=== PATIENT | female | born 1960 | race Caucasian/White ===

== ENCOUNTER 2024-02-29 12:48 | Inpatient (IN) | payer SELFPAY ==
[2024-02-29] VITALS (13 sets, daily range): BP systolic 115–155; BP diastolic 65–94; PULSE 77–110; RESP 15–18; TEMP 36.6–36.8; O2SAT 3–100; BMI 23.4; BMI 22.4
--- NOTE | 2024-02-29 12:58 | XR_ITS ---
FINAL REPORT CLINICAL HISTORY: fall FINDINGS: Two views demonstrate a mildly displaced intertrochanteric fracture of the proximal femur. There are arthroplasty changes of the knee. The hardware is intact. IMPRESSION: Fracture as above. Reviewed, Interpreted and Dictated by Lolita Jama MD Transcribed by Magaly Friend Authenticated and . [facility]
--- NOTE | 2024-02-29 12:58 | CT_ITS ---
FINAL REPORT TECHNIQUE: Thin section axial CT with sagittal reconstruction without contrast. This study was performed with techniques to keep radiation doses as low as reasonably achievable (ALARA). Individualized dose reduction techniques using automated exposure control or adjustment of mA and/or kV according to the patient's size were employed. CLINICAL HISTORY: fall FINDINGS: No fracture is seen. Alignment is normal. There is mild diffuse degenerative disc change. No obvious canal stenosis identified. IMPRESSION: No fracture or malalignment Reviewed, Interpreted and Dictated by Lolita Jama MD Transcribed by Magaly Friend Authenticated and [facility]
--- NOTE | 2024-02-29 12:58 | CT_ITS ---
FINAL REPORT TECHNIQUE: Axial images were performed through the brain. This study was performed with techniques to keep radiation doses as low as reasonably achievable, (ALARA). Individualized dose reduction techniques using automated exposure control or adjustment of mA and/or kV according to the patient's size were employed. CLINICAL HISTORY: fall on asa FINDINGS: No abnormal density is seen. Ventricles are normal. There is no hemorrhage. No mass effect is seen. Bone windows show no evidence of fracture. IMPRESSION: No acute findings Reviewed, Interpreted and Dictated by Lolita Jama MD Transcribed by Magaly Friend Authenticated and . [facility]
--- NOTE | 2024-02-29 12:58 | XR_ITS ---
FINAL REPORT CLINICAL HISTORY: fall, pain FINDINGS: Three views the left hip demonstrate a mildly displaced intertrochanteric fracture of the proximal femur. No soft tissue abnormality is identified. IMPRESSION: Fracture as above. Reviewed, Interpreted and Dictated by Lolita Jama MD Transcribed by Magaly Friend Authenticated and [facility]
--- NOTE | 2024-02-29 12:59 | HMH.EDGENADL ---
Discharge Plan Disposition Patient Disposition: Admitted Condition: Good Clinical Impressions Clinical Impression: Closed fracture of left hip, Fall Discharge ED Provider: Evelyn Mills General Adult HPI <Yadira España MD - Last Filed: 02/29/24 15:15> General Chief complaint: Fall Stated complaint: Fall Time Seen by Provider: 02/29/24 12:48 History of Present Illness HPI narrative: 63-year-old female presents to the ER for concerns of fall. She states she uses a walker to get around but her left leg sometimes gives out. She states she fell once earlier today, did not strike her head or lose consciousness. She states she was able to get up from that fall, but shortly thereafter fell again. She is not sure that she struck her head, does not believe she lost consciousness, she landed on the left hip and is complaining of left hip pain. She states she has chronic pain elsewhere but does not have any new pain other than the left hip. Patient states she is concerned she broke it. She was unable to get herself up after the second fall and EMS had to be called. Patient takes daily aspirin, no other blood thinners. Related Data Allergies Allergy/AdvReac Type Severity Reaction Status Date / Time celecoxib [From Celebrex] Allergy Unknown Verified 02/29/24 13:01 allergy reaction ibuprofen Allergy Unknown Verified 02/29/24 13:01 allergy reaction PFSH <Yadira España MD - Last Filed: 02/29/24 15:15> [facility] Disclaimer: The information contained in this section may have been updated after the patient was seen, as this information can be updated by other users. Social History (Updated 02/29/24 @ 15:15 by Yadira España MD) Smoking Status: Current every day smoker alcohol intake: never current occupational status: other Travel in the last 8 weeks: None <Yadira España MD - Last Filed: 02/29/24 15:15> ROS Obtained: Yes All systems reviewed & no additional complaints except as documented Constitutional Constitutional: Denies chills, Denies fever(s), Denies headache(s) and Denies weakness Eyes Eyes: Denies change in vision ENT Ears, Nose, Mouth, and Throat: Denies dizziness, Denies headache(s), Denies nasal congestion and Denies sore throat Cardiovascular Cardiovascular: Denies chest pain, Denies dyspnea and Denies leg edema Respiratory Respiratory: Denies cough and Denies dyspnea Gastrointestinal Gastrointestingal: Denies constipation, diarrhea, nausea or vomiting Genitourinary Female Genitourinary: Denies dysuria Musculoskeletal Musculoskeletal: Reports arthralgias (Left hip pain), Denies myalgias, Denies numbness and Denies tingling Integumentary/Breasts Skin/Breast: Denies change in pigmentation Neurologic Neurologic: Denies dizziness, Denies headache(s), Denies numbness, Denies tingling and Denies weakness Physical Exam <Yadira España MD - Last Filed: 02/29/24 15:15> General General appearance: alert and in no apparent distress Head Head exam: atraumatic, normocephalic and other (No acute findings of trauma on the head) Eye Eye exam: Present PERRL and EOMI ENT ENT exam: Present mucous membranes moist Neck Neck exam: Present normal inspection and other (No tenderness, c-collar present) Chest Chest inspection: Present symmetric chest wall rise; Absent tenderness Respiratory Respiratory exam: Absent respiratory distress or stridor Cardiovascular Cardiovascular exam: Present regular rate and normal rhythm Abdominal Exam Abdominal exam: Present soft; Absent distention, tenderness, guarding or rebound Extremities Exam Extremities exam: Present tenderness (Tenderness to palpation over the left hip, external rotation of the left leg is present, no shortening) and other (Neurovascularly intact distally); Absent full ROM (Unable to range the left hip) Back Exam Back exam: Absent tenderness (No focal tenderness) Neurological Exam Neurological exam: Present alert and oriented X3; Absent motor sensory deficit Psychiatric Psychiatric exam: Present normal affect and normal mood Skin Skin exam: Present warm and dry Medical Decision Making <Yadira España MD - Last Filed: 02/29/24 15:15> James Inquiry Pt receiving controlled substance: No Vital Signs: 02/29/24 12:48 02/29/24 13:00 02/29/24 13:30 Temperature 98.2 F Temperature Source Oral Pulse Rate 110 H 90 Pulse Rate [Left Radial] 105 H Respiratory Rate 15 Blood Pressure 115/93 H 137/68 Blood Pressure [Right Arm] 132/94 H Blood Pressure Mean 100 96 Blood Pressure Mean [Right Arm] 106 Blood Pressure Source Blood Pressure Source [Right Arm] Automatic Cuff Blood Pressure Position Blood Pressure Position [Right Arm] Sitting 02 Sat by Pulse Oximetry 94 L 93 L 88 L Oxygen Delivery Method Room Air Oxygen Flow Rate (LPM) 02/29/24 14:00 02/29/24 15:01 02/29/24 15:11 Temperature Temperature Source Pulse Rate 84 88 89 Pulse Rate [Left Radial] Respiratory Rate Blood Pressure 134/88 155/72 H 153/71 H Blood Pressure [Right Arm] Blood Pressure Mean 105 113 113 Blood Pressure Mean [Right Arm] Blood Pressure Source Blood Pressure Source [Right Arm] Blood Pressure Position Blood Pressure Position [Right Arm] 02 Sat by Pulse Oximetry 93 L 94 L 90 L Oxygen Delivery Method Oxygen Flow Rate (LPM) 02/29/24 15:30 02/29/24 16:00 02/29/24 16:30 Temperature Temperature Source Pulse Rate 85 78 77 Pulse Rate [Left Radial] Respiratory Rate Blood Pressure 140/65 145/79 H 151/78 H Blood Pressure [Right Arm] Blood Pressure Mean 90 97 Blood Pressure Mean [Right Arm] Blood Pressure Source Blood Pressure Source [Right Arm] Blood Pressure Position Blood Pressure Position [Right Arm] 02 Sat by Pulse Oximetry 100 100 99 Oxygen Delivery Method Nasal Cannula Oxygen Flow Rate (LPM) 3 02/29/24 16:49 Temperature 98.0 F Temperature Source Oral Pulse Rate 77 Pulse Rate [Left Radial] Respiratory Rate 18 Blood Pressure 151/78 H Blood Pressure [Right Arm] Blood Pressure Mean Blood Pressure Mean [Right Arm] Blood Pressure Source Automatic Cuff Blood Pressure Source [Right Arm] Blood Pressure Position Supine Blood Pressure Position [Right Arm] 02 Sat by Pulse Oximetry Oxygen Delivery Method Nasal Cannula Oxygen Flow Rate (LPM) 3 Lab Data Lab Results 02/29/24 15:04: WBC 12.9 H, RBC 5.28, Hgb 14.8, Hct 45.6, MCV 86.3, MCH 28.0, MCHC 32.4, RDW 16.1, Plt Count 286, MPV 7.5, Neut % (Auto) 85.8 H, Lymph % (Auto) 7.3 L, Irion % (Auto) 6.2, Eos % (Auto) 0.4, Baso % (Auto) 0.2, Neut # (Auto) 11.0 H, Lymph # (Auto) 0.9, Irion # (Auto) 0.8, Eos # (Auto) 0.1, Baso # (Auto) 0.0, Total Counted 100, Neutrophils % (Manual) 85 H, Lymphocytes % (Manual) 10, Monocytes % (Manual) 5, Platelet Estimate Normal, RBC Morphology Normal, PT 10.9, INR 1.01, Sodium 140, Potassium 3.3 L, Chloride 105, Carbon Dioxide 22, Anion Gap 16.3 H, BUN 12, Creatinine 1.00, Estimated Creat Clear 48, Estimated GFR 56 L, Est GFR ( Amer) 67, Glucose 95, Calcium 8.8, Total Bilirubin 0.5, AST 48 H, ALT 37, Alkaline Phosphatase 127 H, Total Protein 7.2, Albumin 4.4, Globulin 2.8, Albumin/Globulin Ratio 1.6 02/29/24 15:04 02/29/24 15:04 Orders (Tests/Meds): ED MEDICATIONS Generic Name Dose Route Start Last Admin Trade Name Freq PRN Reason Stop Dose Admin Hydrocodone Bitart/Acetaminophen 1 tab 02/29/24 16:58 Hydrocodone/Apap 5/325 Mg Tablet PO 03/30/24 16:57 Q4HP PRN Mild to Moderate Pain (1-6) Heparin Sodium (Porcine) 5,000 unit 02/29/24 17:00 Heparin Sodium 5,000 Unit/Ml Vial SQ 03/30/24 16:59 Q8H SELMA Morphine Sulfate 4 mg 02/29/24 16:39 02/29/24 16:43 Morphine 4mg/Ml Syringe IV 02/29/24 16:40 4 mg ONCE ONE Administration Morphine Sulfate 2 mg 02/29/24 16:58 Morphine 2mg/Ml Syringe IV 03/30/24 16:57 Q4H PRN Severe Pain (7-10) Ondansetron HCl 4 mg 02/29/24 16:58 Ondansetron 4mg/2ml Vial IV 03/30/24 16:57 Q8HP PRN Nausea Discontinued Medications Generic Name Dose Route Start Last Admin Trade Name Freq PRN Reason Stop Dose Admin Lactated Ringer's 1,000 mls @ 999 mls/hr 02/29/24 15:12 02/29/24 15:37 Lactated Ringer's 1000 Ml Bag IV 02/29/24 16:12 999 mls/hr .Q1H1M ONE Administration Morphine Sulfate 4 mg 02/29/24 12:59 02/29/24 13:18 Morphine 4mg/Ml Syringe IV 02/29/24 13:00 4 mg ONCE ONE Administration Morphine Sulfate 4 mg 02/29/24 15:06 02/29/24 15:13 Morphine 4mg/Ml Syringe IV 02/29/24 15:07 4 mg ONCE ONE Administration Ondansetron HCl 4 mg 02/29/24 12:59 02/29/24 13:18 Ondansetron 4mg/2ml Vial IV 02/29/24 13:00 4 mg ONCE ONE Administration ORDERS Category Date Time Status CT cervical spine wo con Stat Cat Scan 02/29/24 12:[address] head/brain wo con Stat Cat Scan 02/29/24 12:58 Taken Ortho Consult (on-call) [Consult to On-Call Orthopedic Cons 02/29/24 16:04 Ordered Surgeon] [CONS] Routine Femur XR left 2 views [XR femur LT 2V] Stat Exams 02/29/24 12:58 Taken Hip XR left minimum 2 views [XR hip LT 2-3V w/pelvis] Exams 02/29/24 12:58 Taken Stat Knee XR left 3 views [XR knee LT 3V] Stat Exams 02/29/24 16:08 Taken CBC w/Auto Diff [Complete Blood Count Auto Diff] Stat Lab 02/29/24 15:04 Completed CMP [Comprehensive Metabolic Panel] Stat Lab 02/29/24 15:04 Completed PT INR [Prothrombin Time INR] Stat Lab 02/29/24 15:04 Completed Blood Culture Stat Micro 02/29/24 16:21 Ordered Medical Decision Narrative: In summary, this 63-year-old female presents to the emergency department today with concerns of possible injury after fall, on aspirin, complaints of left hip pain. On initial evaluation patient is hemodynamically stable, afebrile, GCS 15, neurovascularly intact throughout, patient has tenderness of the left hip with external rotation of the left leg, no shortening, she has palpable DP and PT in the left leg as well as full strength with dorsiflexion plantarflexion of the foot and sensation intact. Differential diagnosis includes but is not limited to intracranial bleed, skull fracture, cervical spine injury, unable to rule these out by any clinical calculators due to patient's age, also considered possibility of fracture, dislocation, exam does not indicate findings of other traumatic injury. Based on these concerns, I ordered basic serum labs, CT imaging, x-rays. Patient received IV morphine, Zofran, IV fluids for treatment. X-rays personally interpreted do not demonstrate obvious hip fracture. There is a questionable abnormality of the left femoral neck, however I believe this is due to rotation of the patient and the image. Radiology read pending. CT head personally interpreted does not demonstrate obvious acute intracranial abnormality. Radiology reads pending. On reassessment patient continued to have pain. She received additional IV morphine. Patient handed off to Dr. Mills at physician shift change pending lab results and radiology reads for imaging. <Evelyn Mills, DO - Last Filed: 02/29/24 17:06> Vital Signs: 02/29/24 12:48 02/29/24 13:00 02/29/24 13:30 Temperature 98.2 F Temperature Source Oral Pulse Rate 110 H 90 Pulse Rate [Left Radial] 105 H Respiratory Rate 15 Blood Pressure 115/93 H 137/68 Blood Pressure [Right Arm] 132/94 H Blood Pressure Mean 100 96 Blood Pressure Mean [Right Arm] 106 Blood Pressure Source Blood Pressure Source [Right Arm] Automatic Cuff Blood Pressure Position Blood Pressure Position [Right Arm] Sitting 02 Sat by Pulse Oximetry 94 L 93 L 88 L Oxygen Delivery Method Room Air Oxygen Flow Rate (LPM) 02/29/24 14:00 02/29/24 15:01 02/29/24 15:11 Temperature Temperature Source Pulse Rate 84 88 89 Pulse Rate [Left Radial] Respiratory Rate Blood Pressure 134/88 155/72 H 153/71 H Blood Pressure [Right Arm] Blood Pressure Mean 105 113 113 Blood Pressure Mean [Right Arm] Blood Pressure Source Blood Pressure Source [Right Arm] Blood Pressure Position Blood Pressure Position [Right Arm] 02 Sat by Pulse Oximetry 93 L 94 L 90 L Oxygen Delivery Method Oxygen Flow Rate (LPM) 02/29/24 15:30 02/29/24 16:00 02/29/24 16:30 Temperature Temperature Source Pulse Rate 85 78 77 Pulse Rate [Left Radial] Respiratory Rate Blood Pressure 140/65 145/79 H 151/78 H Blood Pressure [Right Arm] Blood Pressure Mean 90 97 Blood Pressure Mean [Right Arm] Blood Pressure Source Blood Pressure Source [Right Arm] Blood Pressure Position Blood Pressure Position [Right Arm] 02 Sat by Pulse Oximetry 100 100 99 Oxygen Delivery Method Nasal Cannula Oxygen Flow Rate (LPM) 3 06/25/24 16:49 Temperature 98.0 F Temperature Source Oral Pulse Rate 77 Pulse Rate [Left Radial] Respiratory Rate 18 Blood Pressure 151/78 H Blood Pressure [Right Arm] Blood Pressure Mean Blood Pressure Mean [Right Arm] Blood Pressure Source Automatic Cuff Blood Pressure Source [Right Arm] Blood Pressure Position Supine Blood Pressure Position [Right Arm] 02 Sat by Pulse Oximetry Oxygen Delivery Method Nasal Cannula Oxygen Flow Rate (LPM) 3 Lab Data Lab Results 02/29/24 15:04: WBC 12.9 H, RBC 5.28, Hgb 14.8, Hct 45.6, MCV 86.3, MCH 28.0, MCHC 32.4, RDW 16.1, Plt Count 286, MPV 7.5, Neut % (Auto) 85.8 H, Lymph % (Auto) 7.3 L, Irion % (Auto) 6.2, Eos % (Auto) 0.4, Baso % (Auto) 0.2, Neut # (Auto) 11.0 H, Lymph # (Auto) 0.9, Irion # (Auto) 0.8, Eos # (Auto) 0.1, Baso # (Auto) 0.0, Total Counted 100, Neutrophils % (Manual) 85 H, Lymphocytes % (Manual) 10, Monocytes % (Manual) 5, Platelet Estimate Normal, RBC Morphology Normal, PT 10.9, INR 1.01, Sodium 140, Potassium 3.3 L, Chloride 105, Carbon Dioxide 22, Anion Gap 16.3 H, BUN 12, Creatinine 1.00, Estimated Creat Clear 48, Estimated GFR 56 L, Est GFR ( Amer) 67, Glucose 95, Calcium 8.8, Total Bilirubin 0.5, AST 48 H, ALT 37, Alkaline Phosphatase 127 H, Total Protein 7.2, Albumin 4.4, Globulin 2.8, Albumin/Globulin Ratio 1.6 Orders (Tests/Meds): ED MEDICATIONS Generic Name Dose Route Start Last Admin Trade Name Freq PRN Reason Stop Dose Admin Hydrocodone Bitart/Acetaminophen 1 tab 02/29/24 16:58 Hydrocodone/Apap 5/325 Mg Tablet PO 03/30/24 16:57 Q4HP PRN Mild to Moderate Pain (1-6) Heparin Sodium (Porcine) 5,000 unit 02/29/24 17:00 Heparin Sodium 5,000 Unit/Ml Vial SQ 07/25/24 16:59 Q8H SELMA Morphine Sulfate 4 mg 02/29/24 16:39 02/29/24 16:43 Morphine 4mg/Ml Syringe IV 02/29/24 16:40 4 mg ONCE ONE Administration Morphine Sulfate 2 mg 02/29/24 16:58 Morphine 2mg/Ml Syringe IV 03/30/24 16:57 Q4H PRN Severe Pain (7-10) Ondansetron HCl 4 mg 02/29/24 16:58 Ondansetron 4mg/2ml Vial IV 03/30/24 16:57 Q8HP PRN Nausea Discontinued Medications Generic Name Dose Route Start Last Admin Trade Name Freq PRN Reason Stop Dose Admin Lactated Ringer's 1,000 mls @ 999 mls/hr 02/29/24 15:12 02/29/24 15:37 Lactated Ringer's 1000 Ml Bag IV 02/29/24 16:12 999 mls/hr .Q1H1M ONE Administration Morphine Sulfate 4 mg 02/29/24 12:59 02/29/24 13:18 Morphine 4mg/Ml Syringe IV 02/29/24 13:00 4 mg ONCE ONE Administration Morphine Sulfate 4 mg 02/29/24 15:06 02/29/24 15:13 Morphine 4mg/Ml Syringe IV 02/29/24 15:07 4 mg ONCE ONE Administration Ondansetron HCl 4 mg 02/29/24 12:59 02/29/24 13:18 Ondansetron 4mg/2ml Vial IV 02/29/24 13:00 4 mg ONCE ONE Administration ORDERS Category Date Time Status CT cervical spine wo con Stat Cat Scan 02/29/24 12:[address] head/brain wo con Stat Cat Scan 02/29/24 12:58 Taken Ortho Consult (on-call) [Consult to On-Call Orthopedic Cons 02/29/24 16:04 Ordered Surgeon] [CONS] Routine Femur XR left 2 views [XR femur LT 2V] Stat Exams 02/29/24 12:58 Taken Hip XR left minimum 2 views [XR hip LT 2-3V w/pelvis] Exams 02/29/24 12:58 Taken Stat Knee XR left 3 views [XR knee LT 3V] Stat Exams 02/29/24 16:08 Taken CBC w/Auto Diff [Complete Blood Count Auto Diff] Stat Lab 02/29/24 15:04 Completed CMP [Comprehensive Metabolic Panel] Stat Lab 02/29/24 15:04 Completed PT INR [Prothrombin Time INR] Stat Lab 02/29/24 15:04 Completed Blood Culture Stat Micro 02/29/24 16:21 Ordered Medical Decision Narrative: In summary, this 63-year-old female presents to the emergency department today with concerns of possible injury after fall, on aspirin, complaints of left hip pain. On initial evaluation patient is hemodynamically stable, afebrile, GCS 15, neurovascularly intact throughout, patient has tenderness of the left hip with external rotation of the left leg, no shortening, she has palpable DP and PT in the left leg as well as full strength with dorsiflexion plantarflexion of the foot and sensation intact. Differential diagnosis includes but is not limited to intracranial bleed, skull fracture, cervical spine injury, unable to rule these out by any clinical calculators due to patient's age, also considered possibility of fracture, dislocation, exam does not indicate findings of other traumatic injury. Based on these concerns, I ordered basic serum labs, CT imaging, x-rays. Patient received IV morphine, Zofran, IV fluids for treatment. X-rays personally interpreted do not demonstrate obvious hip fracture. There is a questionable abnormality of the left femoral neck, however I believe this is due to rotation of the patient and the image. Radiology read pending. CT head personally interpreted does not demonstrate obvious acute intracranial abnormality. Radiology reads pending. On reassessment patient continued to have pain. She received additional IV morphine. Patient handed off to Dr. Mills at physician shift change pending lab results and radiology reads for imaging. Gene, DO: On my assessment of the patient, she complains of continued left hip pain for which she was given a dose of IV morphine. She is neurovascularly intact. X-ray significant for left intertrochanteric femur fracture. CT scans do not demonstrate any C-spine fracture or intracranial hemorrhage. No other injuries noted, so C-spine was cleared and c-collar was removed. I had an indirect discussion with Dr. Mann with orthopedics who advised that he could see the patient in consultation of the hospitalist feels comfortable admitting the patient. I had an interactive discussion with Dr. Cooper, the hospitalist who admitted the patient for further evaluation and management. She was admitted in stable condition. Critical Care <Yadira España MD - Last Filed: 02/29/24 15:15> Critical Care Time Critical Care Time: No
[2024-02-29] MEDS: MORPHINE 4MG/ML SYRINGE 4 MG IV ×3 (13:18→16:43)
[2024-02-29] MEDS: ONDANSETRON 4MG/2ML VIAL 4 MG IV (13:18)
--- NOTE | 2024-02-29 13:44 | PC.NURSE ---
Pt gone to RAD via stretcher
--- NOTE | 2024-02-29 14:00 | PC.NURSE ---
Pt back from RAD after CT
[2024-02-29 15:17] LABS: Basophils % 0.2 % (0.1-2.0); Eosinophils # 0.1 K/mm3 (0.0-0.4); Eosinophils % 0.4 % (0.1-12.0); Hematocrit 45.6 % (37.0-47.0); Hemoglobin 14.8 g/dL (12.2-16.2); Lymphocytes # 0.9 K/mm3 (0.7-4.5); Lymphocytes % 7.3 % (10-50); Mean Corpuscular HGB Conc 32.4 g/dL (31.8-35.4); Mean Corpuscular Volume 86.3 fl (81-99); Mean Platelet Volume 7.5 fl (7.4-10.4); Monocytes # 0.8 K/mm3 (0.1-1.0); Monocytes % 6.2 % (1.7-9.3); Neutrophils % 85.8 % (37.0-80.0); Platelet Count 286 K/mm3 (142-424); Red Blood Count 5.28 M/mm3 (4.20-5.40); Red Cell Distribution Width 16.1 % (11.5-17.5); White Blood Count 12.9 K/mm3 (4.8-10.8)
[2024-02-29 15:19] LABS: MANUAL DIFFERENTIAL MANUAL DIFFERENTIAL (MANUAL DIFF)
[2024-02-29 15:24] LABS: INR 1.01 (0.9-1.1); Prothrombin Time 10.9 seconds (10.1-12.5)
[2024-02-29 15:35] LABS: Chloride 105 mmol/L (98-107); Sodium 140 mmol/L (136-145)
[2024-02-29 15:36] LABS: Lymphocytes % 10 % (10-50); Monocytes % 5 % (2-9); Neutrophils % 85 % (42-76); Platelet Estimate Normal; Potassium 3.3 mmoL/L (3.5-5.1); RBC Morphology Normal; Total Cells Counted 100
[2024-02-29] MEDS: LACTATED RINGERS 1000ML 1,000 ML 999 ML IV (15:37)
[2024-02-29 15:38] LABS: Alanine Aminotransferase 37 U/L (12-78); Alkaline Phosphatase 127 U/L (38-126); Anion Gap 16.3 mEq/L (5-15); Aspartate Amino Transferase 48 U/L (14-36); Bilirubin,Total 0.5 mg/dl (0.2-1.3); Blood Urea Nitrogen 12 mg/dl (7-17); Calcium 8.8 mg/dl (8.4-10.2); Carbon Dioxide 22 mmol/L (22.0-30.0); Creatinine Clearance Estimated 48 mL/min (50-200); Estimated Glomerular Filt Rate 56 ml/min (>60); GFR (African American) 67 ML/MIN (>60); Glucose 95 mg/dl (74-100)
[2024-02-29 15:39] LABS: Albumin Level 4.4 g/dl (3.5-5.0); Albumin/Globulin Ratio 1.6 (1.1-1.8); Globulin 2.8 g/dL (1.3-3.2); Total Protein,Serum 7.2 g/dl (6.3-8.2)
--- NOTE | 2024-02-29 16:08 | XR_ITS ---
FINAL REPORT CLINICAL HISTORY: fall, hip fx FINDINGS: There is no acute fracture or dislocation. Patient is status post knee arthroplasty. The hardware is intact. IMPRESSION: No acute fracture. Reviewed, Interpreted and Dictated by Lolita Jama MD Transcribed by Magaly Friend Authenticated and [facility]
--- NOTE | 2024-02-29 16:17 | PC.NURSE ---
rad in room for knee x-ray
--- NOTE | 2024-02-29 16:37 | PC.NURSE ---
rounded on pt, pt requesting water and info on consult. aware
--- NOTE | 2024-02-29 16:49 | PC.NURSE ---
Report given to Julia on Med Surg.
[2024-02-29] MEDS: HEPARIN SODIUM 5,000 UNIT/ML VIAL 5000 UNIT SQ (17:46)
[2024-02-29] MEDS: MORPHINE 2MG/ML SYRINGE 2 MG IV ×2 (17:50→21:30)
--- NOTE | 2024-02-29 18:13 | EXP.ORTH.CON ---
History of Present Illness *Admission Date: 02/29/24 *Reason for visit:: Left hip fracture *History of present illness: 63-year-old female who lives in [facility] she was here visiting with her to take care of her 's dad. Her knee gave out to get tangled up in her purse [place] left hip. She called 911 came to the emergency room found to have left hip fracture. She was admitted to the hospitalist team Ortho consulted regarding treatment options for the left hip fracture. [facility] Disclaimer: The information contained in this section may have been updated after the patient was seen, as this information can be updated by other users. Medical History History of gastrectomy Sinus abscess Hypokalemia Neuropathy Gastroparesis Erythrocytosis Hiatal hernia Hepatitis B Slipped intervertebral disc Emphysema of lung COPD (chronic obstructive pulmonary disease) Diabetes mellitus Restless leg syndrome Acid reflux Esophageal spasm Fibromyalgia Osteoporosis Rheumatoid aortitis Hyperlipidemia Surgical History History of left knee replacement H/O bilateral breast reduction surgery Hx of cholecystectomy History of hysterectomy History of lumpectomy of left breast Social History Smoking Status: Current every day smoker alcohol intake: never current occupational status: other Travel in the last 8 weeks: None Review of Systems Constitutional Constitutional: Denies headache(s) and Denies weakness ENT Ears, Nose, Mouth, and Throat: Denies dizziness and Denies headache(s) *Musculoskeletal Musculoskeletal: Denies numbness and Denies tingling *Neurologic Neurologic: Denies dizziness, Denies headache(s), Denies numbness, Denies tingling and Denies weakness Meds Home Medications and Allergies New Prescriptions to Start Prescriptions: Allergies Allergy/AdvReac Type Severity Reaction Status Date / Time oseltamivir [From Tamiflu] Allergy Mild Rash Verified 02/29/24 17:19 celecoxib [From Celebrex] Allergy Unknown Verified 02/29/24 13:01 allergy reaction atorvastatin AdvReac Intermediate Unknown Verified 02/29/24 17:19 allergy reaction pheniramine AdvReac Intermediate Confusion Verified 02/29/24 17:19 phenylephrine AdvReac Intermediate Confusion Verified 02/29/24 17:19 promethazine AdvReac Intermediate Dizziness Verified 02/29/24 17:19 latex AdvReac Mild Rash Verified 02/29/24 17:19 linaclotide AdvReac Mild Nausea Verified 02/29/24 17:19 pregabalin [From Lyrica] AdvReac Mild Other Verified 02/29/24 17:19 Ortho Exam (Inpt) Vital signs and Labs for Last 24 Hours: Temp Pulse Resp BP Pulse Ox O2 Del Method O2 Flow Rate 98 F 80 17 151/78 H 3 L Nasal Cannula 3 02/29/24 17:00 02/29/24 17:00 02/29/24 17:00 02/29/24 17:00 02/29/24 18:03 02/29/24 18:03 02/29/24 16:49 Laboratory Results - last 24 hr 02/29/24 15:04: WBC 12.9 H, RBC 5.28, Hgb 14.8, Hct 45.6, MCV 86.3, MCH 28.0, MCHC 32.4, RDW 16.1, Plt Count 286, MPV 7.5, Neut % (Auto) 85.8 H, Lymph % (Auto) 7.3 L, [place] % (Auto) 6.2, Eos % (Auto) 0.4, Baso % (Auto) 0.2, Neut # (Auto) 11.0 H, Lymph # (Auto) 0.9, [place] # (Auto) 0.8, Eos # (Auto) 0.1, Baso # (Auto) 0.0, Total Counted 100, Neutrophils % (Manual) 85 H, Lymphocytes % (Manual) 10, Monocytes % (Manual) 5, Platelet Estimate Normal, RBC Morphology Normal, PT 10.9, INR 1.01, Sodium 140, Potassium 3.3 L, Chloride 105, Carbon Dioxide 22, Anion Gap 16.3 H, BUN 12, Creatinine 1.00, Estimated Creat Clear 48, Estimated GFR 56 L, Est GFR ( Amer) 67, Glucose 95, Calcium 8.8, Total Bilirubin 0.5, AST 48 H, ALT 37, Alkaline Phosphatase 127 H, Total Protein 7.2, Albumin 4.4, Globulin 2.8, Albumin/Globulin Ratio 1.6 I & O for Labs for Last 24 Hours: Intake & Output 02/26/24 02/27/24 02/28/24 06/25/24 23:59 23:59 23:59 23:59 Intake Total 240 / 240 Balance 240 / 240 Weight 114 lb 1.6 oz Additional findings:: Left hip: Pain with any attempted active motion of the hip radiating to the groin area. Sensation intact distal pulses intact X-rays of the left femur shows intertrochanteric hip fracture as well as long stemmed total knee arthroplasty Results Labs 02/29/24 15:04 02/29/24 15:04 Labs: Abnormal lab results 02/29/24 Range/Units 15:04 WBC 12.9 H (4.8-10.8) K/mm3 Neut % (Auto) 85.8 H (37.0-80.0) % Lymph % (Auto) 7.3 L (10-50) % Neut # (Auto) 11.0 H (1.8-7.8) K/mm3 Neutrophils % (Manual) 85 H (42-76) % Potassium 3.3 L (3.5-5.1) mmoL/L Anion Gap 16.3 H (5-15) mEq/L Estimated GFR 56 L (>60) ml/min AST 48 H (14-36) U/L Alkaline Phosphatase 127 H (38-126) U/L H & H 02/29/24 Range/Units 15:04 Hgb 14.8 (12.2-16.2) g/dL Hct 45.6 (37.0-47.0) % Coagulation 02/29/24 Range/Units 15:04 INR 1.01 (0.9-1.1) All other labs normal. Assessment and Plan *Assessment and plan (1) Closed intertrochanteric fracture of left hip: Status: Acute Qualifiers: Encounter type: initial encounter Fracture alignment: displaced Qualified Code(s): S72.142A - Displaced intertrochanteric fracture of left femur, initial encounter for closed fracture Category: Medical Code(s): S72.142A - Displaced intertrochanteric fracture of left femur, initial encounter for closed fracture Plan I had a discussion with the patient regarding treatment options. She will require operative intervention to stabilize the hip fracture. She is hesitant to make definitive plans without her being here. He will be here in the morning. I explained to her we will plan on surgical intervention tomorrow if feasible. I explained that she can be weightbearing as tolerated after surgery. She may need a period of time of rehab placement following the surgery. She is an independent ambulator however does have significant difficulties with a revision total knee arthroplasty on the left side where the knee feels like it alia and she falls. PROPOSED SURGERY: Cephalomedullary nailing left proximal femur the risks and benefits of the proposed surgery were discussed in depth with the patient. Potential complications including inherent risk of anesthesia, infection, neurovascular damage, DVT, and rare but real potential loss of limb or life were all reviewed. Patient voices understanding and seems to understand to my satisfaction and wishes to proceed with surgery. I gave them adequate time to ask any questions they have pertaining to this surgery and answered all of them to the best of my ability. I gave them no guarantees in regards to outcomes of this surgery.
--- NOTE | 2024-02-29 18:17 | P.HP_ITS ---
History of Present Illness *Admission Date: 02/29/24 *Reason for visit:: fall *History of present illness: Patient is a 53-year-old female with history of tobacco use who presents to the hospital after fall. According to the patient she normally uses walker, she had mechanical fall on left side of left hip and started feeling pain right after the fall. She denies hitting her head. Otherwise denied chest pain shortness of breath nausea vomiting diarrhea constipation syncope. On further evaluation patient was found to have mildly displaced intertrochanteric fracture of left proximal femur. [facility] Disclaimer: The information contained in this section may have been updated after the patient was seen, as this information can be updated by other users. Medical History History of gastrectomy Sinus abscess Hypokalemia Neuropathy Gastroparesis Erythrocytosis Hiatal hernia Hepatitis B Slipped intervertebral disc Emphysema of lung COPD (chronic obstructive pulmonary disease) Diabetes mellitus Restless leg syndrome Acid reflux Esophageal spasm Fibromyalgia Osteoporosis Rheumatoid aortitis Hyperlipidemia Surgical History History of left knee replacement H/O bilateral breast reduction surgery Hx of cholecystectomy History of hysterectomy History of lumpectomy of left breast Social History Smoking Status: Current every day smoker alcohol intake: never current occupational status: other Travel in the last 8 weeks: None Review of Systems Review of Systems Review of systems:: pertinent systems reviewed and negative unless documented below Constitutional Constitutional: Denies headache(s) and Denies weakness ENT Ears, Nose, Mouth, and Throat: Denies dizziness and Denies headache(s) *Musculoskeletal Musculoskeletal: Denies numbness and Denies tingling *Neurologic Neurologic: Denies dizziness, Denies headache(s), Denies numbness, Denies tingling and Denies weakness Meds Home Medications and Allergies Home Medications Medication Instructions Recorded Confirmed Type albuterol sulfate 2.5 mg/3 mL 3.5 mg inhalation QID PRN COPD 02/29/24 02/29/24 History (0.083 %) solution for nebulization albuterol sulfate 90 mcg/actuation 90 mcg inhalation NEEDED PRN 02/29/24 02/29/24 History aerosol inhaler (Ventolin HFA) COPD alprazolam 2 mg tablet,extended 2 mg PO DAILY Anxiety 02/29/24 02/29/24 History release 24 hr aspirin 81 mg tablet,delayed 81 mg PO DAILY 02/29/24 02/29/24 History release docusate sodium 100 mg capsule 250 mg PO BID 02/29/24 02/29/24 History ezetimibe 10 mg tablet 10 mg PO DAILY 02/29/24 02/29/24 History fluticasone fur. 100 mcg-umeclid 1 inh inhalation DAILY 02/29/24 02/29/24 History 62.5 mcg-vilant 25 mcg inhalat.powder (Trelegy Ellipta) gabapentin 300 mg capsule 300 mg PO BID 02/29/24 02/29/24 History loratadine 10 mg tablet 10 mg PO DAILY 02/29/24 02/29/24 History meclizine 25 mg chewable tablet 25 mg PO NEEDED PRN Dizziness 02/29/24 02/29/24 History nitroglycerin 0.4 mg sublingual 0.4 mg sublingual Q5M PRN Angina 02/29/24 02/29/24 History tablet omeprazole 40 mg capsule,delayed 40 mg PO BID 02/29/24 02/29/24 History release ondansetron 8 mg disintegrating 8 mg PO Q12H PRN Nausea 02/29/24 02/29/24 History tablet oxycodone 10 mg tablet 10 mg PO QID Pain 02/29/24 02/29/24 History potassium chloride 20 mEq 20 meq PO BID 02/29/24 02/29/24 History tablet,extended release(part/cryst) ropinirole 2 mg tablet 2 mg PO HS 02/29/24 02/29/24 History torsemide 20 mg tablet 20 mg PO BID 02/29/24 02/29/24 History New Prescriptions to Start Prescriptions: Allergies Allergy/AdvReac Type Severity Reaction Status Date / Time oseltamivir [From Tamiflu] Allergy Mild Rash Verified 02/29/24 17:19 celecoxib [From Celebrex] Allergy Unknown Verified 02/29/24 13:01 allergy reaction atorvastatin AdvReac Intermediate Unknown Verified 02/29/24 17:19 allergy reaction pheniramine AdvReac Intermediate Confusion Verified 02/29/24 17:19 phenylephrine AdvReac Intermediate Confusion Verified 02/29/24 17:19 promethazine AdvReac Intermediate Dizziness Verified 02/29/24 17:19 latex AdvReac Mild Rash Verified 02/29/24 17:19 linaclotide AdvReac Mild Nausea Verified 02/29/24 17:19 pregabalin [From Lyrica] AdvReac Mild Other Verified 02/29/24 17:19 Exam Data for Last 24 hours Vital signs and Labs for Last 24 Hours: Temp Pulse Resp BP Pulse Ox O2 Del Method O2 Flow Rate 98 F 80 17 151/78 H 3 L Nasal Cannula 3 02/29/24 17:00 02/29/24 17:00 02/29/24 17:00 02/29/24 17:00 02/29/24 18:03 02/29/24 18:03 02/29/24 16:49 Laboratory Results - last 24 hr 02/29/24 15:04: WBC 12.9 H, RBC 5.28, Hgb 14.8, Hct 45.6, MCV 86.3, MCH 28.0, MCHC 32.4, RDW 16.1, Plt Count 286, MPV 7.5, Neut % (Auto) 85.8 H, Lymph % (Auto) 7.3 L, [place] % (Auto) 6.2, Eos % (Auto) 0.4, Baso % (Auto) 0.2, Neut # (Auto) 11.0 H, Lymph # (Auto) 0.9, [place] # (Auto) 0.8, Eos # (Auto) 0.1, Baso # (Auto) 0.0, Total Counted 100, Neutrophils % (Manual) 85 H, Lymphocytes % (Manual) 10, Monocytes % (Manual) 5, Platelet Estimate Normal, RBC Morphology Normal, PT 10.9, INR 1.01, Sodium 140, Potassium 3.3 L, Chloride 105, Carbon Dioxide 22, Anion Gap 16.3 H, BUN 12, Creatinine 1.00, Estimated Creat Clear 48, Estimated GFR 56 L, Est GFR ( Amer) 67, Glucose 95, Calcium 8.8, Total Bilirubin 0.5, AST 48 H, ALT 37, Alkaline Phosphatase 127 H, Total Protein 7.2, Albumin 4.4, Globulin 2.8, Albumin/Globulin Ratio 1.6 I & O for Last 24 hours: Intake & Output 02/26/24 02/27/24 02/28/2425/24 23:59 23:59 23:59 23:59 Intake Total 240 / 240 Balance 240 / 240 Weight 51.755 kg Constitutional Constitutional: no acute distress *Routine HEENT Exam Head: Present normocephalic Eye: Present EOMI and PERRL ENT: Present mucous membranes moist *Routine Neck Exam Neck: Present supple; Absent lymphadenopathy *Routine Respiratory Exam Respiratory: Present CTA bilaterally *Routine Cardiovascular Exam Cardiovascular: Present RRR *Routine Abdominal Exam Abdominal: Present soft and normoactive bowel sounds; Absent tenderness *Routine Rectal Exam Rectal:: deferred *Routine Genitalia Exam Genitalia:: deferred *Routine Extremities Exam Extremities: Absent cyanosis, clubbing or edema Comments: left hip pain on movement *Routine Skin Exam Skin: Present warm; Absent rash *Routine Neurological Exam Neurological: Present alert and oriented X3 Assessment and Plan *Assessment and plan (1) Closed intertrochanteric fracture of left hip: Status: Acute Qualifiers: Encounter type: initial encounter Fracture alignment: displaced Qualified Code(s): S72.142A - Displaced intertrochanteric fracture of left femur, initial encounter for closed fracture Category: Medical Code(s): S72.142A - Displaced intertrochanteric fracture of left femur, initial encounter for closed fracture (2) Fall: Status: Acute Category: Medical Code(s): W19.XXXA - Unspecified fall, initial encounter Plan Patient is a 53-year-old female with history of tobacco use who presents to the hospital after fall. According to the patient she normally uses walker, she had mechanical fall on left side of left hip and started feeling pain right after the fall. She denies hitting her head. Otherwise denied chest pain shortness of breath nausea vomiting diarrhea constipation syncope. On further evaluation patient was found to have mildly displaced intertrochanteric fracture of left proximal femur. Assessment and plan Intertrochanteric fracture of left proximal femur Fall Consult orthopedics Pain control Fall precautions Consult PT/OT N.p.o. after midnight for potential surgery in the morning Leukocytosis likely reactive Monitor WBCs Hypokalemia Monitor and replace electrolytes Anion gap metabolic acidosis start fluid therapy Monitor BMP DVT prophylaxis-heparin
--- NOTE | 2024-02-29 18:28 | PC.WOUNDNOTE ---
LEFT ELBOW RIGHT ELBOW RIGHT KNEE
[2024-02-29] MEDS: GABAPENTIN 300MG CAPSULE 300 MG PO (20:30)
[2024-02-29] MEDS: PANTOPRAZOLE 40MG TABLET 40 MG PO (20:31)
[2024-02-29] MEDS: POTASSIUM CHLORIDE 20MEQ TAB 20 MEQ PO (20:31)
[2024-02-29] MEDS: ROPINIROLE 2 MG 2 EACH PO (20:31)
[2024-02-29] MEDS: TORSEMIDE 20MG TABLET 20 MG PO (20:31)
[2024-02-29] MEDS: DOCUSATE SODIUM 100 MG CAPSULE 250 MG PO (20:32)
[2024-02-29] MEDS: OXYCODONE 5MG IMMEDIATE RELEASE TABLET 10 MG PO (20:59)
[2024-03-01] VITALS (20 sets, daily range): BP systolic 104–164; BP diastolic 54–90; PULSE 67–103; RESP 14–18; TEMP 36.4–37.2; O2SAT 3–100; BMI 23.6
[2024-03-01] MEDS: HEPARIN SODIUM 5,000 UNIT/ML VIAL 5000 UNIT SQ ×3 (01:41→16:13)
[2024-03-01] MEDS: MORPHINE 2MG/ML SYRINGE 2 MG IV ×5 (04:16→22:10)
[2024-03-01 06:45] LABS: Eosinophils # 0.3 K/mm3 (0.0-0.4); Red Cell Distribution Width 16.2 % (11.5-17.5)
[2024-03-01 06:48] LABS: Chloride 101 mmol/L (98-107)
[2024-03-01 06:49] LABS: Potassium 3.6 mmoL/L (3.5-5.1); Sodium 136 mmol/L (136-145)
[2024-03-01 06:52] LABS: Anion Gap 8.6 mEq/L (5-15); Blood Urea Nitrogen 17 mg/dl (7-17); Calcium 8.7 mg/dl (8.4-10.2); Carbon Dioxide 30 mmol/L (22.0-30.0); Creatinine Clearance Estimated 44 mL/min (50-200); Estimated Glomerular Filt Rate 50 ml/min (>60); GFR (African American) 60 ML/MIN (>60); Glucose 99 mg/dl (74-100)
[2024-03-01 07:28] LABS: Basophils # 0.1 K/mm3 (0-0.2); Basophils % 0.6 % (0.1-2.0); Eosinophils % 3.8 % (0.1-12.0); Hematocrit 41.6 % (37.0-47.0); Lymphocytes # 1.4 K/mm3 (0.7-4.5); Lymphocytes % 18.2 % (10-50); Mean Corpuscular HGB Conc 31.1 g/dL (31.8-35.4); Mean Corpuscular Hemoglobin 27.1 pg (27.0-31.2); Mean Corpuscular Volume 87.1 fl (81-99); Mean Platelet Volume 8.5 fl (7.4-10.4); Monocytes # 0.7 K/mm3 (0.1-1.0); Monocytes % 8.8 % (1.7-9.3); Neutrophils # 5.1 K/mm3 (1.8-7.8); Neutrophils % 68.5 % (37.0-80.0); Platelet Count 215 K/mm3 (142-424); Red Blood Count 4.77 M/mm3 (4.20-5.40); White Blood Count 7.4 K/mm3 (4.8-10.8)
[2024-03-01 07:45] LABS: Hemoglobin 12.9 g/dL (12.2-16.2)
--- NOTE | 2024-03-01 08:09 | HMH.PHAINT1 ---
Pharmacy Intervention Comments: MEDICATION RECONCILIATION COMPLETED ON PATIENT USING EXTERNAL FILL HISTORY FROM PHARMACY AND MAREK REPORT. -JOURDAN VELA, TED
[2024-03-01] MEDS: OXYCODONE 5MG IMMEDIATE RELEASE TABLET 10 MG PO ×3 (09:08→20:10)
[2024-03-01] MEDS: ASPIRIN EC 81MG TABLET 81 MG PO (09:09)
[2024-03-01] MEDS: GABAPENTIN 300MG CAPSULE 300 MG PO ×2 (09:09→20:10)
[2024-03-01] MEDS: TORSEMIDE 20MG TABLET 20 MG PO ×2 (09:09→16:13)
[2024-03-01] MEDS: POTASSIUM CHLORIDE 20MEQ TAB 20 MEQ PO ×2 (09:09→20:10)
[2024-03-01] MEDS: EZETIMIBE 10MG TABLET 10 MG PO (09:09)
[2024-03-01] MEDS: PANTOPRAZOLE 40MG TABLET 40 MG PO ×2 (09:09→20:10)
[2024-03-01] MEDS: LORATADINE 10MG TABLET 10 MG PO (09:09)
[2024-03-01] MEDS: DOCUSATE SODIUM 250MG CAPSULE 250 MG PO ×2 (09:09→20:09)
[2024-03-01] MEDS: FLUTICASONE/UMECLIDIN/VILANTER 100/62.5/25MCG INHALER 1 PUFF IH (10:00)
--- NOTE | 2024-03-01 12:05 | EXP.ANES.CKL ---
[facility] Disclaimer: The information contained in this section may have been updated after the patient was seen, as this information can be updated by other users. Medical History History of gastrectomy Sinus abscess Hypokalemia Neuropathy Gastroparesis Erythrocytosis Hiatal hernia Hepatitis B Slipped intervertebral disc Emphysema of lung COPD (chronic obstructive pulmonary disease) Diabetes mellitus Restless leg syndrome Acid reflux Esophageal spasm Fibromyalgia Osteoporosis Rheumatoid aortitis Hyperlipidemia Surgical History History of left knee replacement H/O bilateral breast reduction surgery Hx of cholecystectomy History of hysterectomy History of lumpectomy of left breast Social History Smoking Status: Current every day smoker alcohol intake: never substance use type: denies use current occupational status: other Travel in the last 8 weeks: None [facility] Anesthesia Checklist Patient Identification Patient Identification: Arm Band and Verbal (Name & ) Structural Data Admitted From: Inpatient Planned Operative Procedure/s: Gamma nail Consent for Planned Operative Procedure(s) Verified: Yes Verified Documents: Surgical Consent and History and Physical NPO Status Verified Time NPO: 00:00 Chart Verification Results Verified: CBC and BMP Additional verifications Anesthesia Reactions: No Airway Assessment Mallampati Score:: Class II C-Spine Mobility Assessed: Yes TMJ Mobility Assessed: Yes Dentition: Edentulous Neurological Assessment Level of Consciousness: Awake Hx Seizures: No Numbness or tingling in extremities: No Anesthesia Plan Anesthesia Risk discussed: Yes Anesthesia Plan: Verified ASA Class: III Anesthesia Type: MAC w/Spinal
[2024-03-01] MEDS: CEFAZOLIN SODIUM 1 GM in 0.9 % SODIUM CHLORIDE 50 ML IV ×2 (13:25→20:09)
--- NOTE | 2024-03-01 13:35 | XR_ITS ---
FINAL REPORT CLINICAL HISTORY: CEPHALOMEDULLARY NAILING IN OR 1.2 min 9.43 mGy FINDINGS: FLUOROSCOPY LESS THAN 1 HOUR HISTORY: Fluoroscopy guidance. Fluoroscopic guidance was provided for cephalomedullary nailing in the OR. 3 spot films were obtained. A total of 1.2 minutes of fluoroscopy time were used. Total DAP: 9.43 mGy IMPRESSION: As above. Reviewed, Interpreted and Dictated by Lolita Jama MD Transcribed by Josy De La Rosa Authenticated and [facility]
--- NOTE | 2024-03-01 13:44 | P.OP_ITS ---
Date of procedure: 03/01/24 Pre-op Diagnosis:: Left intertrochanteric hip fracture Post-op Diagnosis:: Same Procedure performed:: Cephalomedullary nailing left intertrochanteric hip fracture Surgeon:: Masood Mann DO College Instructor(s):: Edward CHRISTINE [employer] PERSONALITY:: Alfredo Jimenez Anesthesia: GETA Estimated blood loss (mL): 75 Clinical Note:: [employer] TFN cephalomedullary nail short nail Operative findings:: See dictation Operative note:: Patient is identified preoperatively. Left hip marked with yes my initials. Then transferred operating suite. Given spinal anesthesia. Then placed upon the radiolucent fracture table left lower extremity placed in side traction semilithotomy position right lower extremity. X-ray machine was brought into identify the fracture and reduce the fracture with the fracture bed. Fracture was reduced anatomical position. Left hip was then prepped and draped normal sterile fashion. Once prepped and draped final operative timeout performed to identify proper patient procedure and extremity. Everyone involved the case agreed. No counter indications to beginning. She did receive preoperative antibiotics. X-ray was brought into identify the tip of the greater trochanter and a 2 fingerbreadth incision 2 fingerbreadths above the greater trochanter was marked. Skin knife is used to incise through skin and the IT band opening guidewire was placed in the tip of the greater trochanter and placed into the canal. Opening reamer was then selected and reamed over the opening guidewire. Ball-tipped wire was then placed down the femoral shaft to abut the stem from the longstem total knee arthroplasty. Size 10 nail 130 degree was selected and placed over the ball-tipped wire impacted into place under direct visualization with the x- ray for proper depth. Once in his proper position the triple cannula was then placed distally and the guidepin was placed into the femoral neck and head and visualized on the AP and lateral views to be in adequate position for the helical blade. Was measured to a size 85. Lateral cortex reamer was utilized followed by the step reamer followed by the size 85 helical blade which is impacted into place in good position. Screwdriver was then used to lock the sliding mechanism on the top of the screw. Attention is then brought distally where the distal screw guide was placed drilled bicortically measured to a size 32. This was followed by size 32 screw for the distal nail screw. Pictures were taken the AP and lateral views to confirm proper placement of the nail. Nail hospital manager then removed from the nail final pictures taken the AP and lateral views and saved. Irrigation of the wounds performed Deep layers were closed with 0 Vicryl subcutaneous with 2-0 Vicryl surgical clips in the skin for closure. Sterile dressing placed patient waken taken to recovery in stable condition.. Condition: stable Disposition: PACU Complications:: None apparent
--- NOTE | 2024-03-01 14:09 | EXP.ANES.I ---
[facility] Anesthesia Record Part I Anesthesia Record I Intake, IV Amount: 1,000 Hydration: Adequate Estimated blood loss (mL): 50 Urine output (mL): 1,200 Blood Pressure: 124/68 SaO2: 95 Pulse Rate: 79 Airway Patency: Patent Respiratory Rate: 17 Temperature: 97.8 F Patient is:: Awake Stable to PACU at:: 14:05
--- NOTE | 2024-03-01 17:14 | P.PN_ITS ---
Subjective *Date: 03/01/24 *Time: 17:14 Interval history: patient is seen at bedside, no acute events overnight, denied SOB, CP, N/V Exam Data for Last 24 hours Vital signs and Labs for Last 24 Hours: Temp Pulse Resp BP Pulse Ox O2 Del Method O2 Flow Rate 98.0 F 75 16 154/79 H 100 Nasal Cannula 3 03/01/24 16:30 03/01/24 16:30 03/01/24 16:30 03/01/24 16:30 03/01/24 16:30 03/01/24 16:30 03/01/24 16:30 Laboratory Results - last 24 hr 03/01/24 06:23: WBC 7.4 D, RBC 4.77, Hgb 12.9 D, Hct 41.6, MCV 87.1, MCH 27.1, MCHC 31.1 L, RDW 16.2, Plt Count 215, MPV 8.5, Neut % (Auto) 68.5, Lymph % (Auto) 18.2, [place] % (Auto) 8.8, Eos % (Auto) 3.8, Baso % (Auto) 0.6, Neut # (Auto) 5.1, Lymph # (Auto) 1.4, [place] # (Auto) 0.7, Eos # (Auto) 0.3, Baso # (Auto) 0.1, Sodium 136, Potassium 3.6, Chloride 101, Carbon Dioxide 30, Anion Gap 8.6, BUN 17 D, Creatinine 1.10 H, Estimated Creat Clear 44, Estimated GFR 50 L, Est GFR ( Amer) 60, Glucose 99, Calcium 8.7 I & O for Last 24 hours: Intake & Output 02/27/24 02/28/24 02/29/24 03/01/24 23:59 23:59 23:59 23:59 Intake Total 240 / 240 1000 / 1000 Output Total 600 / 1300 2200 / 2200 Balance -360 / -1060 -1200 / -1200 Weight 51.755 kg 54.431 kg Constitutional Constitutional: no acute distress *Routine HEENT Exam Head: Present normocephalic Eye: Present EOMI and PERRL ENT: Present mucous membranes moist *Routine Neck Exam Neck: Present supple; Absent lymphadenopathy *Routine Respiratory Exam Respiratory: Present CTA bilaterally *Routine Cardiovascular Exam Cardiovascular: Present RRR *Routine Abdominal Exam Abdominal: Present soft and normoactive bowel sounds; Absent tenderness *Routine Extremities Exam Extremities: Absent cyanosis, clubbing or edema *Routine Skin Exam Skin: Present warm; Absent rash *Routine Neurological Exam Neurological: Present alert and oriented X3 Assessment and Plan *Assessment and plan (1) Closed intertrochanteric fracture of left hip: Status: Acute Qualifiers: Encounter type: initial encounter Fracture alignment: displaced Qualified Code(s): S72.142A - Displaced intertrochanteric fracture of left femur, initial encounter for closed fracture Category: Medical Code(s): S72.142A - Displaced intertrochanteric fracture of left femur, initial encounter for closed fracture (2) Fall: Status: Acute Category: Medical Code(s): W19.XXXA - Unspecified fall, initial encounter Plan Patient is a 53-year-old female with history of tobacco use who presents to the hospital after fall. According to the patient she normally uses walker, she had mechanical fall on left side of left hip and started feeling pain right after the fall. She denies hitting her head. Otherwise denied chest pain shortness of breath nausea vomiting diarrhea constipation syncope. On further evaluation patient was found to have mildly displaced intertrochanteric fracture of left proximal femur. Assessment and plan Intertrochanteric fracture of left proximal femur Fall Consult orthopedics - s/p surgery Cephalomedullary nailing left intertrochanteric hip fracture Pain control Fall precautions Consult PT/OT Leukocytosis likely reactive Monitor WBCs Hypokalemia Monitor and replace electrolytes Anion gap metabolic acidosis start fluid therapy Monitor BMP DVT prophylaxis-heparin dc 1-2 days
--- NOTE | 2024-03-01 18:50 | PC.NURSE ---
A&Ox4. Pt on 3L NC, crackles upon auscultation. Pt had left hip repair today, pt doing well post surgery. Dressing on incision site C/D/I. Pt presented from surgery with echols catheter in place. Pt c/o of pain multiple times this shift and was medicated per NOV. Pt now resting comfortably with no complaints at this time.
[2024-03-01] MEDS: ROPINIROLE 1MG TABLET 2 MG PO (20:11)
[2024-03-01] MEDS: ONDANSETRON 4MG/2ML VIAL 4 MG IV (21:47)
[2024-03-02] VITALS: BP 135/83; PULSE 92; RESP 18; TEMP 36.9; O2SAT 98
[2024-03-02] MEDS: MORPHINE 2MG/ML SYRINGE 2 MG IV ×2 (00:16→04:00)
[2024-03-02] MEDS: HEPARIN SODIUM 5,000 UNIT/ML VIAL 5000 UNIT SQ ×2 (01:03→08:04)
[2024-03-02] MEDS: CEFAZOLIN SODIUM 1 GM in 0.9 % SODIUM CHLORIDE 50 ML IV (01:19)
[2024-03-02 04:00] VITALS: BP 136/76; PULSE 85; RESP 18; TEMP 36.9; O2SAT 97; BMI 24.7
--- NOTE | 2024-03-02 05:59 | PC.NURSE ---
Patient is alert and oriented x4. Her post-op vital signs were completed at 20:30 this shift. Patient has slept very little and stayed awake for most of the night. Patient has remained in bed this shift. Patient complained of having nausea earlier (around 2100) and received 1 dose of Zofran per MAR. She has not had any further complaints of nausea at this time; however, she has refused to eat anything at this time due to not feeling good. Patient has had sips of ice water. Patient has 2 tegaderm/pad dressings on her elbows due to skin tears from her fall; these dressings are clean, dry, and intact at this time. She has a band-aid over the skin tear on her left wrist, her right knee skin tear is open to air, and her hip dressing (from hip replacement surgery) exhibited no acute changes and has remained clean, dry, and intact at this time. Patient complains of consistent pain in her left side and her hip, as well as pain in her lower back due to a broken tailbone. She has been receiving morphine every 4 hours per MAR. Earlier this shift, pillows were placed underneath the patient's left side and between her knees; patient reported that this helped with her pain. Patient's IV dressing was changed at around 0140 this shift due to a small leakage from the hub. Patient's IV is intact and patent at this time. She received two bags of Cefazolin this shift. Patient's IV is currently saline-locked. Patient's echols catheter is still intact and free of kinking; I emptied a total of 1210 mL of urine from her catheter bag during this shift. She requested that her echols catheter be removed before her PT consult in the oncoming shift. Patient is currently resting supine at this time. Call light is within reach.
[2024-03-02 06:02] VITALS: O2SAT 98
[2024-03-02] MEDS: FLUTICASONE/UMECLIDIN/VILANTER 100/62.5/25MCG INHALER 1 PUFF IH (06:02)
[2024-03-02 06:36] LABS: Lymphocytes # 1.3 K/mm3 (0.7-4.5); Red Cell Distribution Width 15.6 % (11.5-17.5)
[2024-03-02 06:41] LABS: Chloride 93 mmol/L (98-107)
[2024-03-02 06:42] LABS: Potassium 3.2 mmoL/L (3.5-5.1); Sodium 130 mmol/L (136-145)
[2024-03-02 06:44] LABS: Blood Urea Nitrogen 13 mg/dl (7-17); Creatinine Clearance Estimated 46 mL/min (50-200); Estimated Glomerular Filt Rate 50 ml/min (>60); GFR (African American) 60 ML/MIN (>60)
[2024-03-02 06:45] LABS: Anion Gap 7.2 mEq/L (5-15); Calcium 8.1 mg/dl (8.4-10.2); Carbon Dioxide 33 mmol/L (22.0-30.0); Glucose 118 mg/dl (74-100)
[2024-03-02 07:07] LABS: Basophils % 0.3 % (0.1-2.0); Eosinophils # 0.3 K/mm3 (0.0-0.4); Eosinophils % 3.5 % (0.1-12.0); Hematocrit 33.7 % (37.0-47.0); Lymphocytes % 16.4 % (10-50); Mean Corpuscular HGB Conc 32.9 g/dL (31.8-35.4); Mean Corpuscular Hemoglobin 28.2 pg (27.0-31.2); Mean Corpuscular Volume 85.9 fl (81-99); Mean Platelet Volume 7.6 fl (7.4-10.4); Monocytes # 0.6 K/mm3 (0.1-1.0); Monocytes % 7.3 % (1.7-9.3); Neutrophils # 5.6 K/mm3 (1.8-7.8); Neutrophils % 72.5 % (37.0-80.0); Platelet Count 165 K/mm3 (142-424); Red Blood Count 3.92 M/mm3 (4.20-5.40); White Blood Count 7.8 K/mm3 (4.8-10.8)
[2024-03-02 07:08] LABS: Hemoglobin 11.1 g/dL (12.2-16.2)
[2024-03-02 07:49] VITALS: BP 144/64; PULSE 85; RESP 20; TEMP 37.2; O2SAT 96
[2024-03-02] MEDS: OXYCODONE 5MG IMMEDIATE RELEASE TABLET 10 MG PO ×2 (08:03→11:54)
[2024-03-02] MEDS: TORSEMIDE 20MG TABLET 20 MG PO (08:04)
[2024-03-02] MEDS: DOCUSATE SODIUM 250MG CAPSULE 250 MG PO (08:04)
[2024-03-02] MEDS: PANTOPRAZOLE 40MG TABLET 40 MG PO (08:04)
[2024-03-02] MEDS: POTASSIUM CHLORIDE 20MEQ TAB 20 MEQ PO (08:04)
[2024-03-02] MEDS: LORATADINE 10MG TABLET 10 MG PO (08:04)
[2024-03-02] MEDS: EZETIMIBE 10MG TABLET 10 MG PO (08:04)
[2024-03-02] MEDS: ASPIRIN EC 81MG TABLET 81 MG PO (08:04)
[2024-03-02] MEDS: GABAPENTIN 300MG CAPSULE 300 MG PO (08:04)
--- NOTE | 2024-03-02 09:12 | P.PN_ITS ---
Subjective Narrative: Patient states that pain is substantial with pain meds given 1 hour ago. She is sitting at bedside with PT/OT. Denies paresthesias, overnight events. Exam Data for Last 24 hours Vital signs and Labs for Last 24 Hours: Temp Pulse Resp BP Pulse Ox O2 Del Method O2 Flow Rate 98.9 F 85 20 144/64 H 96 Nasal Cannula 3 03/02/24 07:49 03/02/24 07:49 03/02/24 07:49 03/02/24 07:49 03/02/24 07:49 03/02/24 08:16 03/02/24 08:16 Laboratory Results - last 24 hr 03/02/24 05:41: WBC 7.8, RBC 3.92 L, Hgb 11.1 L D, Hct 33.7 L, MCV 85.9, MCH 28.2, MCHC 32.9, RDW 15.6, Plt Count 165, MPV 7.6, Neut % (Auto) 72.5, Lymph % (Auto) 16.4, [place] % (Auto) 7.3, Eos % (Auto) 3.5, Baso % (Auto) 0.3, Neut # (Auto) 5.6, Lymph # (Auto) 1.3, [place] # (Auto) 0.6, Eos # (Auto) 0.3, Baso # (Auto) 0.0, Sodium 130 L, Potassium 3.2 L, Chloride 93 L, Carbon Dioxide 33 H, Anion Gap 7.2, BUN 13, Creatinine 1.10 H, Estimated Creat Clear 46, Estimated GFR 50 L, Est GFR ( Amer) 60, Glucose 118 H, Calcium 8.1 L I & O for Last 24 hours: Intake & Output 02/28/24 02/29/24 03/01/24 03/02/24 23:59 23:59 23:59 23:59 Intake Total 240 / 240 1270 / 1440 380 / 380 Output Total 600 / 1300 4010 / 4010 750 / 750 Balance -360 / -1060 -2740 / -2570 -370 / -370 Weight 51.755 kg 54.431 kg 57.153 kg Detailed Lower Extremity Exam Comments: LLE: Dressing C/D/I with gauze, ABD, tape. Thigh SNT. Calves SNT. SILT 1st DWS/PA, + motor EHL/FHL/GS/TA. Cap refill <2 sec distal to incision. Progress Note: A&P Assessment and plan (1) Closed intertrochanteric fracture of left hip: Status: Acute Assessment and plan: WBAT to LLE Ice PRN pain Pain medicaitons PRN DVT ppx per medical team SCDs on b/l LE REinforce dressing PRN Remove echols today Hgb/Hct 11.1/33.7, monitor. Encourage PO intake. (2) Fall: Status: Acute
--- NOTE | 2024-03-02 09:48 | HMH.PTEV ---
Physical Therapy Evaluation Rehab PT IP Evaluation Start: 03/01/24 13:53 Freq: ONCE Status: Active Protocol: Document 03/02/24 09:40 YODIT (Rec: 03/02/24 09:48 YODIT [id number]) Subjective/History History History Patient is a 63-year-old female with history of tobacco use who presents to the hospital after fall. According to the patient she normally uses walker, she had mechanical fall on left side of left hip and started feeling pain right after the fall. She denies hitting her head. Otherwise denied chest pain shortness of breath nausea vomiting diarrhea constipation syncope. On further evaluation patient was found to have mildly displaced intertrochanteric fracture of left proximal femur. Pt presents s/p cephalomedullary nailing. Subjective Subjective PLOF per pt report: Pt lives alone in a single-story home with ramped entrance. Pt used RW for IND ambulation. Pt IND with ADLs. New diagnosis of cancer in past 12 No months? Rehab PT IP Eval Objective Appearance Patient Behavior Appropriate,Cooperative Patient Orientation Person,Birthday,Situation Difficulty following instructions none Speech Pattern Clear Ambulation Patient Able to Ambulate Yes Ambulation Observation IP General Gait Pattern Observation Antalgic Gait,Decrease Weight Bear (L) Ambulation Distance (feet) 3 Ambulation Assistive Device Rolling Walker Ambulation Ability Minimal x 1 (25% assist) Balance Ability to Arise Able, uses arms to help Sitting Balance Steady, safe Standing Balance Steady, wide stance Transfers Bed Transfer Ability Minimal x 1 (25% assist) Sit to Stand Bed Transfer Ability Minimal x 2 (25% assist) Rehab PT IP prob,goals,plan Problems Date of Evaluation: 03/02/24 PT IP Problems Bed Mobility,Transfers,Gait, Balance,Self care,Safety Rehab Potential Rehab Potential Good Equipment Needs Assistive Devices Rolling / Wheeled Walker Plan PT Intervention Plan Bed Mobility,Transfers,Gait, Balance,Safety,Therapeutic Exercise Other Intervention Plan 1-2 times PT Plan Frequency Daily Duration LOS Discharge Goals Bed Transfer Ability Supervision/Stand by Sit to Stand Chair Transfer Ability Contact Guard/Hand Hold Ambulation Assistive Device Rolling Walker Ambulation Distance (feet) 10 Discharge Plan PT Discharge Plan Initial physical therapy evaluation performed. Patient presents below baseline at this time in functional mobility, transfers, and strength. Pt not safe to return home alone at this time d/t requiring Min A with functional mobility. Pt reports she does not have anyone who can stay with her. PT recommending short-term rehabilitation stay upon d/c from [facility]. If pt able to demo improved mobility (SUP-IND), pt may be able to return home alone with PT services. Pt would benefit from skilled PT while at [facility] to prevent further functional decline and maximize safety with mobility . Eval Complexity Eval Charge Codes 36942 - Moderate Complexity PHYSICIAN CERTIFICATION: I certify the specified therapy services for Dione Barraza are required, authorized, and reviewed every 30 days.
--- NOTE | 2024-03-02 10:13 | HMH.OTEV ---
OT Inpatient Evaluation Rehab OT IP Evaluation Start: 03/01/24 13:53 Freq: ONCE Status: Active Protocol: Document 03/02/24 09:43 ROSIE (Rec: 03/02/24 10:13 [facility] [id number]) Rehab OT IP Assessment Subjective History Patient is a 53-year-old female with history of tobacco use who presents to the hospital after fall. According to the patient she normally uses walker, she had mechanical fall on left side of left hip and started feeling pain right after the fall. She denies hitting her head. Otherwise denied chest pain shortness of breath nausea vomiting diarrhea constipation syncope. On further evaluation patient was found to have mildly displaced intertrochanteric fracture of left proximal femur. Pt admitted on 2023. PLOF: Pt reported they live cathryn in a single story home with steps to enter, but have a ramp entrance. Pt reports they use a walker. Pt reports they were indepedent in ADLs and IADLs. Pt reports they do live next door to ex- and sometimes take turns to drive. Pt reports they use O2 at home and are on 3 L. Subjective I feel like I'm going to throw up. Pt was supine in bed when therapy entered room. Pt agreed to participate in initial OT eval this morning. Pt reported they wanted to get up into chair. Pt was oriented x3. Pt went from supine to EOB with Min Assist. Pt then sat on EOB holding static sitting balance with CGA for ~3 minutess while therapy retrieved walker and asked PLOF questions. Pt then completed a sit to stand transfer with Mod Assist x2. Pt then held static standing balance with Min Assist x2 while therapy adjusted height on walker for UE weight bearing. Pt then completed funcitonal mobility task of ~4 feet with walker, Min Assist x2. Pt then sat in chair displaying good safety reaching for chair arms and making sure they were all they griffin in chair before sitting. Pt reported feeling dizzy and sick to stomach mx times throughout bed mobility, transfer, and functional mobility task. Pt demonstrated fair activity tolerance. Pt was left sitting in chair with call light, EMC bag, and all other needs within reach. Objective Patient Orientation Person,Birthday,Patient Baseline Bed Mobility bed mobility-scooting,bed mobility - supine/sit Assist Level Minimal x 1 (25% assist) Transfer Training Sit/Stand Transfer Assist Level Moderate x 2 (50% assist) Chair Transfer Ability Moderate x 2 (50% assist) Chair Transfer Technique Sit to/from Ambulatory Chair Transfer Assistive Devices None Decrease in Endurance Yes Rehab OT IP prob,goals,plan Problems Date of Evaluation: 03/02/24 OT IP Problems Bed Mobility,Transfers,Balance ,Self care,Safety Rehab Potential Rehab Potential Good Equipment Needs Assistive Devices Standard Walker Plan OT intervention Plan Bed Mobility,Transfers,Balance ,Self care,Safety,Therapeutic Exercise OT Plan Frequency Daily Duration LOS Discharge Goals Bed Mobility Ability Standby Assistance Sit to Stand Chair Transfer Ability Minimal x 1 (25% assist) Chair Transfer Ability Minimal x 1 (25% assist) Chair Transfer Technique Sit to/from Ambulatory Chair Transfer Assistive Devices Rolling Walker Feeding Ability Assist with Tray Set Up Lower Body Dressing Ability Moderate Assistance Upper Body Dressing Ability Contact Guard Bathing Ability Moderate Assistance Performing Toilet Hygiene Ability Moderate Assistance Overall Commode/Toilet Transfer Ability Minimal Assistance Commode/Toilet Transfer Technique Sit to/from Ambulatory Decrease in Endurance No Discharge Plan OT Discharge Plan At this time, it is recommended that pt goes to rehab to address deficits in occupational performance with skilled OT services to address deficits, pending medical status and dr. vega. Pt will continue to be seen while at this facility to address deficits in occupational performance with skilled OT services and interventions. Eval Complexity Eval Charge Codes 89137 - Moderate Complexity PHYSICIAN CERTIFICATION: I certify the specified therapy services for Dione Barraza are required, authorized, and reviewed every 30 days.
--- NOTE | 2024-03-02 11:39 | SW/DCPLANNER ---
Addendum entered by Estee Hoffman 03/02/24 14:24: Thao w/ [facility] stated that services will start tomorrow 03/03 for this patient. Original Note: I spoke w/ this patient regarding plans once medically stable for discharge. PT/OT evaluated patient and recommended placement at this time. Due to patient's insurance she would require private pay or RENUKA pending. Patient is not interested in placement at this time and prefers to return home w/ home health services. Patient stated that she has used [facility] in the past and prefers to use this agency at discharge. Patient information/order will be faxed today. Patient stated that she has all needed DME at home. The plan for this patient is to discharge this afternoon.
[2024-03-02 12:00] VITALS: BP 142/75; PULSE 90; RESP 22; TEMP 37.1; O2SAT 97
--- NOTE | 2024-03-02 13:41 | EXP.DC.SUM ---
General Admission date:: 02/29/24 Discharge date: 03/02/24 HPI HPI HPI: Patient is a 53-year-old female with history of tobacco use who presents to the hospital after fall. According to the patient she normally uses walker, she had mechanical fall on left side of left hip and started feeling pain right after the fall. She denies hitting her head. Otherwise denied chest pain shortness of breath nausea vomiting diarrhea constipation syncope. On further evaluation patient was found to have mildly displaced intertrochanteric fracture of left proximal femur. Hospital Course Hospital Course Hospital Course: Patient is a 53-year-old female with history of tobacco use who presents to the hospital after fall. According to the patient she normally uses walker, she had mechanical fall on left side of left hip and started feeling pain right after the fall. She denies hitting her head. Otherwise denied chest pain shortness of breath nausea vomiting diarrhea constipation syncope. On further evaluation patient was found to have mildly displaced intertrochanteric fracture of left proximal femur. Assessment and plan Intertrochanteric fracture of left proximal femur Fall Consult orthopedics - s/p surgery Cephalomedullary nailing left intertrochanteric hip fracture Pain control Fall precautions Consult PT/OT follow up with Orthopedics as OP, patient was evaluated by PT /OT and orthopedics, patient cleared for dsicharge home with home care. Patient agreed with the discharge plan On the date of discharge, the patient reported feeling stable. The patient was found not to be in any acute distress, and no new abnormalities on physical examination. Further, the patient expressed appropriate understanding of, and agreement with, the discharge recommendations, medications, and plan. Time spent 37 mins Exam Data for Last 24 hours Vital signs and Labs for Last 24 Hours: Temp Pulse Resp BP Pulse Ox O2 Del Method O2 Flow Rate 98.7 F 90 22 142/75 H 97 Room Air 2 03/02/24 12:00 03/02/24 12:00 03/02/24 12:00 03/02/24 12:00 03/02/24 12:00 03/02/24 12:36 03/02/24 12:00 Laboratory Results - last 24 hr 03/02/24 05:41: WBC 7.8, RBC 3.92 L, Hgb 11.1 L D, Hct 33.7 L, MCV 85.9, MCH 28.2, MCHC 32.9, RDW 15.6, Plt Count 165, MPV 7.6, Neut % (Auto) 72.5, Lymph % (Auto) 16.4, [place] % (Auto) 7.3, Eos % (Auto) 3.5, Baso % (Auto) 0.3, Neut # (Auto) 5.6, Lymph # (Auto) 1.3, [place] # (Auto) 0.6, Eos # (Auto) 0.3, Baso # (Auto) 0.0, Sodium 130 L, Potassium 3.2 L, Chloride 93 L, Carbon Dioxide 33 H, Anion Gap 7.2, BUN 13, Creatinine 1.10 H, Estimated Creat Clear 46, Estimated GFR 50 L, Est GFR ( Amer) 60, Glucose 118 H, Calcium 8.1 L I & O for Last 24 hours: Intake & Output 02/28/24 02/29/24 03/01/24 03/02/24 23:59 23:59 23:59 23:59 Intake Total 240 / 240 1270 / 1440 380 / 380 Output Total 600 / 1300 4010 / 4010 2950 / 2950 Balance -360 / -1060 -2740 / -2570 -2570 / -2570 Weight 51.755 kg 54.431 kg 57.153 kg Constitutional Constitutional: no acute distress *Routine HEENT Exam Head: Present normocephalic Eye: Present EOMI and PERRL ENT: Present mucous membranes moist *Routine Neck Exam Neck: Present supple; Absent lymphadenopathy *Routine Respiratory Exam Respiratory: Present CTA bilaterally *Routine Cardiovascular Exam Cardiovascular: Present RRR *Routine Abdominal Exam Abdominal: Present soft and normoactive bowel sounds; Absent tenderness *Routine Extremities Exam Extremities: Absent cyanosis, clubbing or edema *Routine Skin Exam Skin: Present warm; Absent rash *Routine Neurological Exam Neurological: Present alert and oriented X3 Results Data Completed and Pending Labs on day of discharge: Labs from last 24 hours 03/02/24 05:41 WBC 7.8 RBC 3.92 L Hgb 11.1 L D Hct 33.7 L MCV 85.9 MCH 28.2 MCHC 32.9 RDW 15.6 Plt Count 165 MPV 7.6 Neut % (Auto) 72.5 Lymph % (Auto) 16.4 [place] % (Auto) 7.3 Eos % (Auto) 3.5 Baso % (Auto) 0.3 Neut # (Auto) 5.6 Lymph # (Auto) 1.3 [place] # (Auto) 0.6 Eos # (Auto) 0.3 Baso # (Auto) 0.0 Sodium 130 L Potassium 3.2 L Chloride 93 L Carbon Dioxide 33 H Anion Gap 7.2 BUN 13 Creatinine 1.10 H Estimated Creat Clear 46 Estimated GFR 50 L Est GFR ( Amer) 60 Glucose 118 H Calcium 8.1 L DS: Diagnosis Discharge Diagnosis (1) Closed intertrochanteric fracture of left hip: Status: Acute Code(s): S72.142A - Displaced intertrochanteric fracture of left femur, initial encounter for closed fracture Qualifiers: Encounter type: initial encounter Fracture alignment: displaced Qualified Code(s): S72.142A - Displaced intertrochanteric fracture of left femur, initial encounter for closed fracture (2) Fall: Status: Acute Code(s): W19.XXXA - Unspecified fall, initial encounter Meds Home Medications and Allergies Home Medications Medication Instructions Recorded Confirmed Type albuterol sulfate 90 mcg/actuation 90 mcg inhalation Q4HP PRN 02/29/24 03/01/24 History aerosol inhaler (Ventolin HFA) Shortness Of Breath alprazolam 2 mg tablet,extended 4 mg PO DAILY 02/29/24 03/01/24 History release 24 hr aspirin 81 mg tablet,delayed 81 mg PO DAILY 02/29/24 02/29/24 History release docusate sodium 100 mg capsule 200 mg PO BID 02/29/24 03/01/24 History ezetimibe 10 mg tablet 10 mg PO DAILY 02/29/24 02/29/24 History fluticasone fur. 100 mcg-umeclid 1 inh inhalation DAILY 02/29/24 02/29/24 History 62.5 mcg-vilant 25 mcg inhalat.powder (Trelegy Ellipta) gabapentin 300 mg capsule 300 mg PO TID 02/29/24 03/01/24 History loratadine 10 mg tablet 10 mg PO DAILY 02/29/24 02/29/24 History meclizine 25 mg chewable tablet 25 mg PO BIDP PRN Dizziness 02/29/24 03/01/24 History nitroglycerin 0.4 mg sublingual 0.4 mg sublingual Q5MINP PRN Angina 02/29/24 03/01/24 History tablet omeprazole 40 mg capsule,delayed 40 mg PO BID 02/29/24 02/29/24 History release ondansetron 8 mg disintegrating 8 mg PO BIDP PRN Nausea 02/29/24 03/01/24 History tablet oxycodone 10 mg tablet 10 mg PO QID 02/29/24 02/29/24 History potassium chloride 20 mEq 20 meq PO BID 02/29/24 02/29/24 History tablet,extended release(part/cryst) ropinirole 2 mg tablet 2 mg PO HS 02/29/24 02/29/24 History torsemide 20 mg tablet 20 mg PO BID 02/29/24 02/29/24 History cyclobenzaprine 10 mg tablet 10 mg PO BIDP PRN Muscle Spasm 03/01/24 03/01/24 History New Prescriptions to Start Prescriptions: Allergies Allergy/AdvReac Type Severity Reaction Status Date / Time oseltamivir [From Tamiflu] Allergy Mild Rash Verified 02/29/24 17:19 celecoxib [From Celebrex] Allergy Unknown Verified 02/29/24 13:01 allergy reaction atorvastatin AdvReac Intermediate Unknown Verified 02/29/24 17:19 allergy reaction pheniramine AdvReac Intermediate Confusion Verified 02/29/24 17:19 phenylephrine AdvReac Intermediate Confusion Verified 02/29/24 17:19 promethazine AdvReac Intermediate Dizziness Verified 02/29/24 17:19 latex AdvReac Mild Rash Verified 02/29/24 17:19 linaclotide AdvReac Mild Nausea Verified 02/29/24 17:19 pregabalin [From Lyrica] AdvReac Mild Other Verified 02/29/24 17:19 Discharge Plan Disposition Patient Disposition: Home Health Service Condition: Good Discharge Order Discharge Orders: Discharge Order (Routine); Ordered 03/02/24 Ordered By: Maria Del Rosario Cooper Follow up Plan Follow up with: Masood Mann DO [Staff Physician] - 03/16/24 9:15 am Prescriptions/Medication Reconciliation: Continued torsemide 20 mg tablet 20 mg PO BID omeprazole 40 mg capsule,delayed release(DR/EC) 40 mg PO BID aspirin 81 mg tablet,delayed release (DR/EC) 81 mg PO DAILY ondansetron 8 mg Tablet,Disintegrating 8 mg PO BIDP PRN (Reason: Nausea) potassium chloride 20 mEq tablet,ER particles/crystals 20 meq PO BID ropinirole 2 mg Tablet 2 mg PO HS nitroglycerin 0.4 mg Tablet, Sublingual 0.4 mg SUBLINGUAL Q5MINP PRN (Reason: Angina) Rx Instructions: do not exceed 3 doses per episode docusate sodium 100 mg capsule 200 mg PO BID gabapentin 300 mg capsule 300 mg PO TID albuterol sulfate [Ventolin HFA] 90 mcg/actuation HFA aerosol inhaler 90 mcg INHALATION Q4HP PRN (Reason: Shortness Of Breath) loratadine 10 mg tablet 10 mg PO DAILY meclizine 25 mg tablet,chewable 25 mg PO BIDP PRN (Reason: Dizziness) ezetimibe 10 mg tablet 10 mg PO DAILY alprazolam 2 mg tablet extended release 24 hr 4 mg PO DAILY oxycodone 10 mg tablet 10 mg PO QID Trelegy Ellipta 100-62.5-25 mcg blister with device 1 inh INHALATION DAILY cyclobenzaprine 10 mg tablet 10 mg PO BIDP PRN (Reason: Muscle Spasm) Problem Reconciliation Problems Reviewed?: Yes Patient Discharge Instructions ACTIVITY: Continue current activity DIET: continue same diet Patient Instructions: DI for Hip Fracture, DI for Surgical Site Infection Providers Primary Care Provider: Alpa Coburn Admit Provider: Maria Del Rosario Cooper Attending Provider: Maria Del Rosario Cooper
== END 2024-03-02 15:24 | disposition home health service (06) | DRG 482 ==
LOC: ER 16:19 → 2ND 20:20
PROVIDERS: Emergency Medicine; Orthopaedic Surgery; Admitting Provider Internal Medicine; Emergency Provider Emergency Medicine; PCP Physician Assistant; Visit Provider Internal Medicine
PROC: 0QS736Z Reposition Left Upper Femur with Intramedullary Internal Fixation Device, Percutaneous Approach (ICD-10-PCS; principal; 2024-03-01 14:30)
DX: S72.142A Displaced intertrochanteric fracture of left femur, initial encounter for closed fracture (principal); W19.XXXA Unspecified fall, initial encounter; F17.200 Nicotine dependence, unspecified, uncomplicated; E87.6 Hypokalemia
CPT/HCPCS: 27245; 36415; 70450; 72125; 73502; 73552; 73562; 80048; 80053; 85007; 85025; 85610; 94640; 97162; 97166; 97530; 99285; J0690; J1644; J2270; J2405; J7120

== ENCOUNTER 2024-03-16 08:37 | Outpatient (CLI) | payer MEDICARE, MEDICAID, SELFPAY ==
--- NOTE | 2024-03-16 08:45 | XR_ITS ---
FINAL REPORT CLINICAL HISTORY: Left Hip Pain COMPARISON: 02/29/2024 FINDINGS: LEFT HIP: Two views of the left hip demonstrate interval postoperative changes from proximal femur ORIF of an intertrochanteric fracture. There is an intramedullary fadia seen in the distal femur. Mild degenerative changes are noted. The visualized bony structures are well aligned. No soft tissue abnormality is seen. IMPRESSION: Interval postoperative changes. Reviewed, Interpreted and Dictated by Kye Rodriguez III, MD Transcribed by Josy De La Rosa Authenticated and [facility]
== END 2024-03-16 23:59 | disposition home or self-care (01) ==
LOC: RAD 08:41
PROVIDERS: PCP Physician Assistant; Visit Provider Orthopaedic Surgery
DX: M25.552 Pain in left hip (principal)
CPT/HCPCS: 73502

== ENCOUNTER 2024-04-27 09:21 | Outpatient (CLI) | payer MEDICARE, MEDICAID, SELFPAY ==
--- NOTE | 2024-04-27 09:27 | XR_ITS ---
FINAL REPORT CLINICAL HISTORY: lt hip pain COMPARISON: 03/16/2024 FINDINGS: LEFT HIP: 3 views of the left hip demonstrate no acute fracture or dislocation. There is an intramedullary fadia present in the left proximal femur, with a compression screw. The joint space appears normal. The visualized bony structures are well aligned. No soft tissue abnormality is seen. IMPRESSION: Intramedullary fadia is present in the left proximal femur with a compression screw. No acute abnormality of the left hip is identified. Reviewed, Interpreted and Dictated by Tobi Sosa MD Transcribed by Rachael Nguyen Authenticated and [facility]
== END 2024-04-27 23:59 | disposition home or self-care (01) ==
LOC: RAD 09:24
PROVIDERS: PCP Physician Assistant; Visit Provider Orthopaedic Surgery
DX: M25.552 Pain in left hip (principal); S72.142A Displaced intertrochanteric fracture of left femur, initial encounter for closed fracture
CPT/HCPCS: 73502

== ENCOUNTER 2024-06-29 08:32 | Outpatient (CLI) | payer MEDICARE, MEDICAID, SELFPAY ==
--- NOTE | 2024-06-29 08:39 | XR_ITS ---
PROCEDURE INFORMATION: Exam: XR Left Hip Exam date and time: 06/29/2024 8:55 AM Age: 64 years old Clinical indication: Hip pain; Left hip; Additional info: Left hip FX TECHNIQUE: Imaging protocol: Radiologic exam of the left hip. Views: 2 or 3 views hip with pelvis when performed. COMPARISON: CR XR HIP LT 2-3V W/PELVIS 04/27/2024 9:42 AM FINDINGS: Tubes, catheters and devices: Intramedullary nail with interlocking screws in the left hip and partially seen femoral stem of distal knee prosthesis noted without appreciable hardware complication. Bones/joints: No acute fracture or malalignment. Mild left hip joint osteoarthritis. Soft tissues: No soft tissue abnormality. IMPRESSION: No acute fracture or malalignment. Mild left hip joint osteoarthritis.
== END 2024-06-29 23:59 | disposition home or self-care (01) ==
PROVIDERS: Visit Provider Orthopaedic Surgery
DX: S72.142A Displaced intertrochanteric fracture of left femur, initial encounter for closed fracture (principal)
CPT/HCPCS: 73502